=== PATIENT | female | born 1995 | race Caucasian/White ===

== ENCOUNTER 2020-05-31 22:06 | Emergency (ER) | payer OTHER ==
[2020-05-31 22:19] VITALS: BP 131/82
--- NOTE | 2020-05-31 23:10 | ED Physician Documentation ---
PD HPI UPPER EXT INJURY - Stated complaint Stated Complaint: RT PINKY LAC - Chief complaint Chief Complaint: Laceration - History obtained from History obtained from: Patient - History of Present Illness Location: Right, Finger Type of injury: Laceration Where injury occurred: Home Timing - onset: How many hours ago (approximately 1 hour [employer]) Timing - details: Abrupt onset Associated symptoms: No: Weakness, Numbness, Tingling, Swelling, Discolored Similar symptoms before: Has not had sx before - Additonal information Additional information: patient is left hand dominant. Tonight she was using a chisel which slipped and caused a laceration of her right fifth digit (finger). She is UTD on tetanus Review of Systems Skin: reports: Laceration (s) Neurologic: denies: Focal weakness, Numbness PD PAST MEDICAL HISTORY - Past Medical History Past Medical History: No - Present Medications Home Medications: Ambulatory Orders Medication Instructions Recorded Confirmed No Known Home Medications 05/31/20 05/31/20 - Allergies Allergies/Adverse Reactions: Allergies Allergy/AdvReac Type Severity Reaction Status Date / Time No Known Drug Allergies Allergy Verified 05/31/20 22:16 - Living Situation Living Arrangement: reports: At home PD ED PE NORMAL - Vitals Vital signs reviewed: Yes - General General: Alert and oriented X 3, No acute distress - Extremities Extremities: No tenderness to palpate, Normal ROM s pain, No edema - Neuro Neuro: No motor deficit (FROM and strength of right 5th finger, flexion and extension. LTS intact at tip of finger), No sensory deficit PD ED PE EXPANDED - Extremities MELISSA UE/Hands Visual: 1 - laceration (7 mm length laceration with trace visible adipose tissue e xposed. no bony tenderness) Results - Vitals Vitals: Vital Signs - 24 hr 05/31/20 22:16 Temperature 36.6 C Heart Rate 50 L Respiratory 18 Rate Blood Pressure 131/82 H O2 Saturation 100 Oxygen O2 Source Room air Procedures - Laceration (location) Finger right Palmar Length in cm: 0.7 Wound type: Linear Neurovascular status: Sensory intact, Motor intact, Vascular intact Tendon involvement: Tendon intact Anesthesia: Lidocaine 1% Wound Preparation: Chlorhexadine, Wound explored Skin layer closure: Nylon, Interrupted, Size #-0 - enter number (4-0), Sutures - enter # (2) Complexity: Simple PD MEDICAL DECISION MAKING - ED course Complexity details: considered differential, d/w patient Departure - Departure Disposition: 01 Home, Self Care Clinical Impression: Laceration Condition: Good Instructions: ED Laceration Hand, ED Laceration Ext Sutr Stap Tape Follow-Up: Angela Lozano MD [Primary Care Provider] - (7-8 days for removal of stitches ) Discharge Date/Time: 05/31/20 23:47
[2020-05-31] MEDS ORDERED: LIDOCAINE 1% 2 ML VIAL SUBQ STA (23:20)
[2020-05-31] MEDS ORDERED: LIDOCAINE 1% 2 ML VIAL ONE (23:27)
[2020-05-31] MEDS ORDERED: BACITRACIN ZINC OINT 1 PACKET TOP STA (23:37)
== END 2020-05-31 23:47 | disposition home or self-care (01) ==
LOC: ED 22:06
DX: S61.216A Laceration without foreign body of right little finger without damage to nail, initial encounter (principal); W27.0XXA Contact with workbench tool, initial encounter; Y92.009 Unspecified place in unspecified non-institutional (private) residence as the place of occurrence of the external cause
CPT/HCPCS: 12001; 99281; 99282

== ENCOUNTER 2021-09-05 19:22 | Emergency (ER) | payer OTHER ==
[2021-09-05 19:45] VITALS: BP 125/82
--- NOTE | 2021-09-05 20:45 | XRAY Report ---
PROCEDURE: Shoulder 3 View LT INDICATIONS: possibly overstretched L arm during massage 4 days TECHNIQUE: 3 views of the shoulder were acquired. COMPARISON: None. FINDINGS: Bones: No fractures or dislocations. No suspicious bony lesions. Visualized ribs appear intact. Soft tissues: No suspicious soft tissue calcifications. IMPRESSION: No fracture. No osseous lesion. If there are persistent symptoms or continued clinical concern for pa thology, then repeat plain film radiographs (7-10 days) or advanced imaging (CT, MR, bone scan) shoul d be considered for further evaluation. Reviewed by: Mercy Reyes MD, PhD on 09/05/2021 8:44 PM PDT Approved by: Mercy Reyes MD, PhD on 09/05/2021 8:44 PM PDT Station ID: [id number]
--- NOTE | 2021-09-05 21:02 | ED Physician Documentation ---
History of Present Illness - Stated complaint Stated Complaint: LT SHOULDER PX - Chief complaint Chief Complaint: Ext Problem - History obtained from History obtained from: Patient - Additonal information Additional information: 26yF, previously healthy, p/w L shoulder pain after having a massage 5 days ago then going kayaking. constant, gradual onset, worse with ROM, aching quality. no prior injury. no trauma. Review of Systems Musculoskeletal: reports: Extremity pain, Joint pain PD PAST MEDICAL HISTORY - Past Medical History Past Medical History: No - Past Surgical History Past Surgical History: No - Present Medications Home Medications: Ambulatory Orders Medication Instructions Recorded Confirmed Ibuprofen [Motrin] 1 tablet PO Q8H PRN #30 tablet 09/05/21 - Allergies Allergies/Adverse Reactions: Allergies Allergy/AdvReac Type Severity Reaction Status Date / Time No Known Drug Allergies Allergy Verified 09/05/21 19:45 - Social History Does the pt smoke?: No Smoking Status: Never smoker Does the pt drink ETOH?: Yes ETOH Use: Wine Does the pt have substance abuse?: No - Immunizations Immunizations are current?: Yes - POLST Patient has POLST: No PD ED PE NORMAL - Vitals Vital signs reviewed: Yes - General General: Alert and oriented X 3, No acute distress, Well developed/nourished - HEENT HEENT: Atraumatic, PERRL, EOMI - Neck Neck: Supple, no meningeal sign - Derm Derm: Normal color, Warm and dry - Extremities Extremities: No deformity, Other (normal ROM of L shoulder. discomfort with active ROM. 2+ BL radial pulses. normal strength, sensation, cap refill bilaterally) Results - Vitals Vitals: Vital Signs - 24 hr 09/05/21 19:35 Temperature 36.5 C Heart Rate 81 Respiratory 18 Rate Blood Pressure 125/82 H O2 Saturation 100 Oxygen O2 Source Room air PD MEDICAL DECISION MAKING - ED course ED course: 26yF p/w shoulder strain. education and symptom management discussed. patient requested script for 800mg ibuprofen. advised to take on full stomach. return precautions given. plan to f/u [facility] . Departure - Departure Disposition: 01 Home, Self Care Clinical Impression: Shoulder pain, left Condition: Good Instructions: Rotator Cuff Injury Prescriptions: Ibuprofen [Motrin] 1 tablet PO Q8H PRN #30 tablet PRN Reason: PAIN &/OR FEVER Comments: You were seen in the emergency department for left shoulder strain. Your xrays did not show a break in the bone or dislocation. Make sure that you apply ice for 20 minutes every hour for the next 48 hours, alternate with warm compresses. Take ibuprofen every 8 hours as needed for pain and anti-inflammatory properties on a full stomach. Do not take with other nonsteroidal anti- inflammatories. Make sure that you check if taking other medication whether it is an NSAID. Follow-up with [facility] for further evaluation. Try to rest the shoulder as much as possible over the next couple of days. Do gentle range of motion exercises as tolerated. Return to the emergency department you have any new or worsening symptoms or other concerns. Discharge Date/Time: 09/05/21 21:08
== END 2021-09-05 21:08 | disposition home or self-care (01) ==
LOC: ED 19:22
DX: S46.912A Strain of unspecified muscle, fascia and tendon at shoulder and upper arm level, left arm, initial encounter (principal); X50.9XXA Other and unspecified overexertion or strenuous movements or postures, initial encounter
CPT/HCPCS: 99283